=== PATIENT | female | born 1980 | race African-American/Black ===

== ENCOUNTER 2018-11-14 06:08 | Inpatient (IN) ==
[2018-11-14] MEDS ORDERED: D5 1/2 NS 1000 ML 1,000 ML ONE (06:26)
--- NOTE | 2018-11-14 07:03 | DR.OB ---
OB Quick Note - Assessment/Plan Assessment/Plan: L&D 11/14/18 at 6:50am S-No complaint. O-Afebrile,VSS FHT-150 with good LTV, +accel, no decel. CTX=irregular,mild CVX=2cm/50%/-1/VTX A-IUP at 38 4/7 weeks for induction PIH AMA P-Begin pitocin induction F/U preeclamptic labs Anticipate
[2018-11-14] MEDS: D5LR 1L W PITOCIN 10 UNITS/L 10 UNITS/1,000 ML BAG IV ONE ×2 (07:30→09:09)
[2018-11-14] MEDS ORDERED: MORPHINE SULFATE INJ 2 MG INJ IVP PRN (07:37)
[2018-11-14] MEDS ORDERED: D5LR 1L W PITOCIN 10 UNITS/L 10 UNITS/1,000 ML BAG IV PRN (07:37)
[2018-11-14] MEDS ORDERED: PITOCIN IVP ONE (07:37)
[2018-11-14] MEDS ORDERED: REGLAN INJ 10 MG VIAL IVP PRN (07:37)
[2018-11-14] MEDS ORDERED: D5 1/2 NS 1000 ML 1,000 ML IV SCH (07:37)
[2018-11-14] MEDS ORDERED: PHENERGAN INJ 25 MG IM PRN ×2 (07:37→16:06)
[2018-11-14] MEDS ORDERED: PITOCIN ONE (09:46)
[2018-11-14] MEDS ORDERED: NUBAIN INJ 10 ONE ×2 (09:48→12:55)
[2018-11-14] MEDS: NUBAIN INJ 200 MG VIAL MULTIDOSE IVP PRN ×2 (09:50→12:50)
--- NOTE | 2018-11-14 12:12 | DR.OB ---
OB Quick Note - Assessment/Plan Assessment/Plan: L&D 11/14/18 at 12:05pm Pitocin=18mu/min. S-No complaint. O-Afebrile, VSS YBB=963 with good LTV, +accel, no decel. CTX=q 1 1/2 to 3 min., about 35-55mmHg CVX=3cm/50%/-1/VTX A-IUP at 38 4/7 weeks for induction PIH AMA anemia ASCUS P-Cont. pitocin induction Anticipate
[2018-11-14] MEDS ORDERED: D5 1/2 NS 1L W PITOCIN 20 UNITS/L 20 UNITS/1,000 ML BAG IV ONE (14:54)
[2018-11-14] MEDS ORDERED: MOTRIN TAB 800 MG PO PRN (16:06)
[2018-11-14] MEDS ORDERED: D5 1/2 NS 1000 ML 1,000 ML with PITOCIN 20 UNITS IV SCH ×2 (17:00)
--- NOTE | 2018-11-14 17:28 | DR.OB ---
OB Quick Note - Assessment/Plan Assessment/Plan: Delivery Note [employer] EXAMINER 11/14/18 at 3:55pm Patient complete and pushing. Head delivered over intact perineum. No nuchal cord. Nose and mouth bulb suctioned. Body delivered over intact perineum. Cord clamped x 2 and cut. handed to attendant. Cord sent for gases. Placenta delivered spontaneously / intact / 3 vessel cord. No CVX tears. A small second degree introital tear noted and repaired with 0-vicryl in usual fashion. Viable female infant, VTX/OA, wt=7'3" and 8/9, stable to NBN. Mother stable to RR. MKP=[id number].
[2018-11-14] MEDS ORDERED: AMBIEN PO PRN (17:44)
[2018-11-14] MEDS ORDERED: DERMOPLAST SPRAY TOP PRN (17:44)
[2018-11-14] MEDS ORDERED: MILK OF MAGNESIA PO PRN (17:44)
[2018-11-14] MEDS: FERROUS GLUCONATE PO SCH (21:31)
[2018-11-14] MEDS: ZANTAC PO SCH (21:31)
[2018-11-15 04:20] LABS: HEMATOCRIT 26.2 % (36.0-47.0); HEMOGLOBIN 8.8 g/dL (12.0-16.0)
[2018-11-15] MEDS ORDERED: PRENATAL PLUS PO SCH (09:00)
[2018-11-15] MEDS: FERROUS GLUCONATE PO SCH (10:21)
[2018-11-15] MEDS: ZANTAC PO SCH (10:22)
[2018-11-15 17:43] VITALS: BP 138/72
== END 2018-11-15 17:50 | disposition home or self-care (01) | DRG 807 ==
LOC: NUR 06:08 → LD 06:33 → MED/SURG 18:03
PROVIDERS: ADMIT Specialist; ATTEND Specialist
DX: O99.013 Anemia complicating pregnancy, third trimester; O13.3 Gestational [pregnancy-induced] hypertension without significant proteinuria, third trimester; O70.1 Second degree perineal laceration during delivery; Z3A.38 38 weeks gestation of pregnancy; D50.8 Other iron deficiency anemias; Z37.0 Single live birth
CPT/HCPCS: 36415; 59409; 83615; 84450; 84460; 84550; 85014; 85018; 85384; 85610; 85730; A4216; A4222; S0197; J2300; J2590; S5010